=== PATIENT | male | born 1995 | race Caucasian/White ===

== ENCOUNTER 2017-08-05 21:24 | Emergency (ER) | payer OTHER ==
[2017-08-05 23:37] VITALS: BP 156/91
--- NOTE | 2017-08-09 09:39 | ER ---
DATE SEEN: 08/05/2017 TIME SEEN: The patient was seen at 2000 hours. HISTORY: This 22-year-old comes in depressed. SIG-E-CAPS: S: Sad. Sometimes he is sad frequently. I: Sometimes he feels helpless and hopeless and feels it a function of his it portfolio manager and the bad actors at work. Some use and abuse drugs. They want him to join them and they have been giving him a bad time. He works at [employer]. The it portfolio manager is less than cooperative on occasion and sometimes he avoids the shifts the it portfolio manager is on, so he does not have to confront him and also he avoids the shift that his friend is on, who uses drugs. Consequently, he has been working night shifts. G: Sometimes he feels guilty, but only about 20% of the time, but is not very often. E: Energy. He says it is low-to-bad sometimes, but he notes actually he has been sleeping more than usual and he is surprised that he still has low energy. He thinks he probably has sleep apnea. He was told that he had sleep apnea because of bad tonsils at 15 years of age, so they should take them out, but his tonsils were never removed and there were times where he never had sleep apnea, even after that and it relented without tonsillectomy. C: Concentration is good. A: Anxiety is intermittently variable, increased. Has to do with the stress at work. The patient does not have anorexia. P: Psychomotor retardation. He notes his energy level is variable and he did not think that he could be described as being depressed with psychomotor retardation. S: Not suicidal. Sometimes he thought about this, but very rare. The patient denies hallucinations, delusions, or paranoia, and denies homicidal ideation. The patient has had plans to do a fair amount of walking, but he is so busy and active that he has not done this. More lately, his car has not worked, so constantly he has walked to work and [employer] is not so far from home, but he has some walking and doing okay. He denies increased sensitivity to heat or cold (hypothyroidism). Weight gain recently. The patient is a nonsmoker. Does not drink alcohol. He notes this depression has gone on and off for some time, a year. Denies family history of depression. Depression medicines, none. REVIEW OF SYSTEMS: Otherwise negative except as noted above. PHYSICAL EXAMINATION: VITAL SIGNS: Blood pressure 153/96, heart rate 83, respirations 17, oxygen saturation 98%, temperature 36.7 degrees. GENERAL: Alert, tall, overweight, pleasant, self-effacing young man, who has moderate amount of confidence, but has quite gentle manner about him. HEENT: TMs negative. Pharynx without abnormality. NECK: Supple. No thyromegaly. No masses in neck. No cervical adenopathy. LUNGS: Clear to auscultation without rales, rhonchi, or wheezes. HEART: S1, S2. No murmur. No irregularity of rhythm. No S3, no S4. ABDOMEN: Soft, markedly increased abdominal girth. No hepatosplenomegaly. No pigmented striae, but he has nonpigmented striae. EXTREMITIES: Without edema. Deep tendon reflexes hypoactive in the lower extremities, but present in upper extremities. Cranial nerves 2 through 12 intact. Gait intact. Romberg negative and no past-pointing. No dysmetria. ASSESSMENT: 1. Depression. 2. The patient is not suicidal. 3. Do well to see a doctor and have prescription for antidepressants. 4. Also discussed with him exercise and walking would diminish his weight and also increase his confidence and also diminish some of the anxiety and stress that he carries. He will try that and thinks that is a good idea. LABORATORY DATA: Hemoglobin 16.4, white count normal at 9700. PMNs 56, lymphocytes 37, monos 6, platelets normal 277,000. Complete metabolic panel is normal. TSH is normal at 3.08. No evidence for hypothyroidism. DIAGNOSES: 1. Obesity. 2. Depression. 3. Not suicidal. 4. Anxiety. 5. Work-mediated stressors. 6. Mild hypertension. PLAN: Follow up with doctor in a week. No medicines prescribed. The patient encouraged to initiate walking activity. /[id number]
== END 2017-08-05 22:48 | disposition home or self-care (01) ==
LOC: FB.ED 21:24
DX: F32.9 Major depressive disorder, single episode, unspecified (principal); F41.9 Anxiety disorder, unspecified; E66.9 Obesity, unspecified; I10 Essential (primary) hypertension; Z56.3 Stressful work schedule; E03.9 Hypothyroidism, unspecified; Z68.41 Body mass index [BMI] 40.0-44.9, adult
CPT/HCPCS: 36415; 80053; 84443; 85025; 99283